=== PATIENT | male | born 1965 | race Hispanic/Latino ===

== ENCOUNTER 2019-12-03 23:49 | Emergency (ER) | payer MEDICAID, MEDICARE ==
[2019-12-04] MEDS ORDERED: LEVETIRACETAM 500 MG/5 ML SD VIAL IV ONE (01:07)
[2019-12-04 01:12] LABS: APPEARANCE,URINE Clear (CLEAR); BILIRUBIN,URINE Negative (NEGATIVE); COLOR,URINE Yellow (YELLOW); GLUCOSE, URINE (UA) Negative (NEGATIVE); KETONES,URINE Negative (NEGATIVE); LEUKOCYTE ESTERASE ,URINE Negative (NEGATIVE); NITRATE,URINE Negative (NEGATIVE); OCCULT BLOOD,URINE Negative (NEGATIVE); PROTEIN,URINE POS 2+ mg/dL (NEGATIVE); UROBILINOGEN,URINE 0.2 mg/dL (0.2-1.0)
[2019-12-04 01:19] LABS: BASOPHILS % (AUTO) 0.1 % (0.0-5.0); EOSINOPHILS % (AUTO) 0.2 % (0.0-8.0); LYMPHOCYTES % (AUTO) 7.3 % (21.0-51.0); MEAN CORPUSCULAR HGB CONC 33.3 g/dL (32.0-36.0); MEAN CORPUSCULAR VOLUME 84.1 fL (79-99); MONOCYTES % (AUTO) 7.1 % (3.0-13.0); NEUTROPHILS % (AUTO) 85.1 % (40.0-77.0); PLATELET COUNT (AUTO) 226 K/uL (130-400); RED BLOOD CELL COUNT(AUTO) 4.64 MIL/uL (4.50-6.20); RED CELL DISTRIBUTION WIDTH 13.2 % (11.0-15.5)
[2019-12-04 01:37] LABS: INR 0.97 (0.85-1.15); PARTIAL THROMBOPLASTIN TIME 25.6 SEC (26.3-35.5); PROTHROMBIN TIME 10.5 SEC (9.6-11.6)
[2019-12-04 01:41] LABS: CREATININE 0.8 mg/dL (0.5-1.5); POTASSIUM 3.7 mmol/L (3.5-5.1)
[2019-12-04 01:42] LABS: BACTERIA,URINE None Seen /HPF (None Seen); MUCUS,URINE Moderate LPF (None Seen); RBC,URINE None Seen /HPF (0-1); SQUAMOUS EPITHELIAL CELL,UR Rare /HPF (0-2); WBC,URINE None Seen /HPF (0-1)
[2019-12-04 01:45] LABS: ALBUMIN 3.4 g/dL (3.5-5.0); BILIRUBIN,TOTAL 0.3 mg/dL (0.2-1.0); TOTAL PROTEIN, SERUM 6.6 g/dL (6.0-8.3)
== END 2019-12-04 03:36 | disposition home or self-care (01) ==
LOC: EDH 23:49
DX: R56.9 Unspecified convulsions (principal); E86.0 Dehydration; R79.1 Abnormal coagulation profile; I10 Essential (primary) hypertension; E78.00 Pure hypercholesterolemia, unspecified; Z79.899 Other long term (current) drug therapy
CPT/HCPCS: 36415; 70450; 80053; 81001; 84484; 85025; 85610; 85730; 93005; 96365; 99285; J1953

== ENCOUNTER 2025-03-19 20:47 | Emergency (ER) | payer MEDICAID ==
[~2025-03-19] VITALS: Ht 177.8 cm; Wt 111.6 kg
[~2025-03-19 20:47] MED LIST: ATOR20TA65 PO; CARB-338 PO; CARB200T6 PO; LEVE100023 PO; LOSA1TAB37 PO
--- NOTE | 2025-03-19 21:04 | NUR ---
PT CARE ASSUMED AT THIS TIME
--- NOTE | 2025-03-19 21:15 | ERN ---
General Chief Complaint: Knee Injury/Swelling Stated Complaint: C/O PAIN TO RT KNEE AFTER STEPPING INTO HOLE Time Seen by MD: 20:52 Source: patient History of Present Illness Initial Comments 60-year-old male who tripped falling in to a hole injuring his right knee. There swelling and pain on the medial side of his right knee. Distal neurovascular intact. Allergies: Coded Allergies: No Known Drug Allergies (Unverified Allergy, Unknown, 12/04/19) Home Meds Active Scripts Levetiracetam (Levetiracetam) 1,000 Mg Tablet, 1500 MG PO BID, #60 TAB Prov:SARI TSAI MD 10/20/24 Reported Medications Carbamazepine (Carbamazepine) 200 Mg Tablet, 3 TAB PO HS for 30 Days, #60 TAB 0 Refills 10/18/24 Carbamazepine (Carbamazepine ER 200Mg Tab) 200 Mg Tab.er.12h, 400 MG PO AM, TAB 10/18/24 Atorvastatin Calcium (Atorvastatin Calcium) 20 Mg Tablet, 1 TAB PO DAILY for 30 Days, #30 TAB 0 Refills 10/18/24 Losartan/Hydrochlorothiazide (Losartan-Hctz 50-12.5 mg Tab) 50 Mg-12.5 Mg Tablet, 1 TAB PO DAILY for 30 Days, #30 TAB 0 Refills 10/18/24 Past Medical History Past Medical History: High Cholesterol, Hypertension, Seizure, Other Medical History Other: EPILEPSY Past Surgical History: None Family History Family History: Negative Social History Social History: Negative ROS Dictation Review of systems otherwise negative Physical Exam Back Comment Right knee anterior posterior drawer signs negative. Trying to bend the knee medially or laterally elicits a large amount of pain in the medial portion of the patient's right knee. There is obviously swelling on the medial surface of the right knee. MDM Plain films have been ordered. Plain films do not show any evidence of fractures or tendon avulsions. There is a posterior calcification which makes it appear in one view like the inter condylar eminence has a fracture. However in another view the intercondylar eminence is intact. In either case patient does not have any large fractures and he can be discharged from the emergency room on crutches with a knee brace. He can follow-up with his primary care physician or orthopedic surgeon. Patient's exam is suspicious for a right medial ligament or meniscus tear. ED Course Orders Procedure Category Date Status Time Knee 4+Vws Rt RAD 03/19/25 Taken 20:53 Vital Signs Date Time Temp Pulse Resp B/P (MAP) Pulse Ox O2 Delivery O2 Flow Rate FiO2 03/19/25 21:08 98.8 66 16 157/84 98 Room Air* 0 21 03/19/25 20:52 98.8 67 20 159/92 99 Room Air DX & DISP Disposition: Discharge Departure Impression: Primary Impression: Injury of right knee Condition: Stable Additional Instructions: Your x-rays do not show any large bone fractures. There are some extra articular calcifications that may or may not reason injuries. Your physical exam is suspicious for a right medial ligament or right meniscus tear. I recommend you follow-up with a primary care provider or an orthopedic surgeon. For now we will give you crutches with a brace. You can treat the pain and swelling with elevation and ice. Best medications for the pain would be Tylenol and ibuprofen. Referrals: MAXIMILIANO WHITAKER MD (PCP) MATTIE XIONG MD Mar 19, 2025 21:15
[2025-03-19 22:01] VITALS: BP 156/88; PULSE 68; RESP 16; TEMP 98.7; O2SAT 99
--- NOTE | 2025-03-19 22:01 | NUR ---
PT PLACED IN KNEE IMMOBILIZER AT THIS TIME. PT [id number] PROVIDED. PT VERBILIZED UNDERSTANDING. PT PRESENTS WITH CRUTCHES FROM HOME. ED RN REINFORCED EDUCATION ABOUT CRUTCHES TO PT. PT DEMONSTRATED PROPER USE OF CRUTCHES UPON DISCHARGE.
--- NOTE | 2025-03-19 22:10 | NUR ---
AMBULATION ASSESSMENT PT AMBULATED WITH PROPER USE OF CRUTCHES. PT SHOWS NO SIGNS OF IMBALANCE. PT IS ABLE TO BEAR WEIGHT ON KNEE.
--- NOTE | 2025-03-19 23:10 | HMCIMG ---
EXAM: CR right Knee, 4 View. CLINICAL HISTORY: pain swelling COMPARISON: None provided. FINDINGS: BONES: No acute fracture or aggressive appearing osseous lesion. Benign chondral lesion or bone infarct within the distal diaphysis of the femur. JOINTS: There is patellofemoral compartment predominant moderate to severe tricompartmental right knee joint osteoarthritis. There is a small knee joint effusion. SOFT TISSUES: The soft tissues are unremarkable. IMPRESSION: 1. No acute osseous injury. 2. Moderate to severe tricompartmental right knee osteoarthritis, predominantly in the patellofemoral compartment, with small joint effusion. /[place]
== END 2025-03-19 22:12 | disposition home or self-care (01) ==
LOC: EDH 20:47
DX: S89.91XA Unspecified injury of right lower leg, initial encounter (principal); E78.00 Pure hypercholesterolemia, unspecified; I10 Essential (primary) hypertension; G40.909 Epilepsy, unspecified, not intractable, without status epilepticus; Z79.899 Other long term (current) drug therapy; W17.2XXA Fall into hole, initial encounter; Y93.89 Activity, other specified; Y92.89 Other specified places as the place of occurrence of the external cause; Y99.8 Other external cause status
CPT/HCPCS: 29505; 73564; 99283